=== PATIENT | male | born 1955 | race Caucasian/White ===

== ENCOUNTER 2016-11-02 06:36 | Inpatient (IN) | payer BC ==
[2016-10-18 08:21] VITALS: BMI 27.0
--- NOTE | 2016-10-18 08:49 | PAT Medication Instructions ---
Service Date Oct 18, 2016. Current Home Medication List Aspirin (Aspirin), 81 MG PO Q2D Atorvastatin (Lipitor), 40 MG PO Q2D Cyclobenzaprine Hcl (Flexeril), 10 MG PO TID PRN for Muscle Spasms Multivitamin (Multivitamin), 1 TAB PO QAM Potassium Chloride (Micro-K Ext Rel), 10 MEQ PO BID Sildenafil Citrate (Viagra), 50 MG PO PRN Triamterene/Hctz (Dyazide 37.5MG/25MG), 1 TAB PO Q2D Medication Instructions For Your Scheduled Surgery - Hold the following medications the morning of surgery: Potassium Chloride (Micro-K Ext Rel), 10 MEQ PO BID Triamterene/Hctz (Dyazide 37.5MG/25MG), 1 TAB PO Q2D Multivitamin (Multivitamin), 1 TAB PO QAM Sildenafil Citrate (Viagra), 50 MG PO PRN Cyclobenzaprine Hcl (Flexeril), 10 MG PO TID PRN for Muscle Spasms - Take the following medications the morning of surgery with a sip of water OTHERWISE NOTHING TO EAT OR DRINK AFTER MIDNIGHT: Aspirin (Aspirin), 81 MG PO Q2D Atorvastatin (Lipitor), 40 MG PO Q2D - Take the following medications as scheduled the night before surgery: Potassium Chloride (Micro-K Ext Rel), 10 MEQ PO BID Cyclobenzaprine Hcl (Flexeril), 10 MG PO TID PRN for Muscle Spasms If you have any questions please call us at [phone] or [phone] or [phone]
--- NOTE | 2016-10-18 09:24 | DIAGNOSTIC IMAGING REPORT ---
CHEST PREADMISSION(PA/LAT) CLINICAL HISTORY: Preoperative chest COMPARISON STUDY: No previous studies for comparison. FINDINGS: The cardiac and mediastinal contours are normal. There is no evidence of focal pulmonary consolidation. There is no evidence of failure. No pleural effusions are visualized.[ IMPRESSION: No active disease in the chest. Electronically signed by: Francisco Javier Borja M.D. 10/18/2016 9:23 AM Dictated Date/Time: 10/18/2016 9:22 AM
[2016-10-18 10:53] LABS: BASO % 0.6 %; BASO ABS # 0.03 K/uL (0-0.2); COMPLETE YES; EOS % 2.9 %; HEMATOCRIT 46.1 % (42-52); IG% 0.2 %; LYMPH % 22.1 %; LYMPH ABS # 1.08 K/uL (1.2-3.4); MEAN CELL VOLUME 95.8 fL (80-100); MEAN CORPUSCULAR HEMOGLOBIN 32.2 pg (25-34); MEAN CORPUSCULAR HGB CONC 33.6 g/dl (32-36); MONO % 11.1 %; NEUT % 63.1 %; PLATELET COUNT 222 K/uL (130-400); RED BLOOD COUNT 4.81 M/uL (4.7-6.1); WHITE BLOOD COUNT 4.88 K/uL (4.8-10.8)
[2016-10-18 11:00] LABS: BUN/CREATININE RATIO 16.2 (10-20); CREATININE 1.2 mg/dl (0.60-1.40); POTASSIUM 3.9 mmol/L (3.5-5.1)
[2016-10-18 11:02] LABS: CALCIUM 9.4 mg/dl (8.5-10.1)
[2016-10-18 11:03] LABS: PROTHROMBIN TIME (PATIENT) 10.5 SECONDS (9.0-12.0)
--- NOTE | 2016-10-28 21:35 | HISTORY & PHYSICAL EXAMINATION ---
DATE OF ADMISSION: 11/02/2016 CHIEF COMPLAINT: Right knee pain, discomfort, and swelling. HISTORY OF PRESENT ILLNESS: A 61-year-old gentleman, who presents for surgical treatment of his right knee. He has got a fairly long history of right knee pain and discomfort that I have been following for the past 2 years. We have even aspirated and injected his knee which provided some temporary relief. Pain has become more disabling. The shots help him for a very limited period of time. He has got chronic swelling, stiffness. The more he walks, the more it hurts. He would like to have his knee replaced. PAST MEDICAL HISTORY: 1. Hypertension. 2. Elevated cholesterol. 3. Arthritis. PAST SURGICAL HISTORY: Include: 1. Colonoscopy. ALLERGIES: None. CURRENT MEDICINES: 1. Triamterene/hydrochlorothiazide 37.5/25 once a day. 2. Potassium chloride 20 mEq a day. 3. Cyclobenzaprine 10 mg. 4. Aspirin 81 mg. 5. Atorvastatin 40 mg. 6. Viagra 50 mg p.r.n. SOCIAL HISTORY: A 61-year-old male. Does not smoke. He is from [employer]. He is . One drink per day. FAMILY HISTORY: Significant for heart disease. REVIEW OF SYSTEMS: Negative for diabetes, neurologic problems, vascular problems, bleeding disorders. Denies any chest pain, no shortness of breath. No history of DVT or PE. PHYSICAL EXAMINATION: GENERAL: Reveals a healthy pleasant, middle-aged male. He looks to be in pretty good health. HEENT: Benign. NECK: Supple. No lymphadenopathy. LUNGS: Clear to auscultation. HEART: Has a regular rate and rhythm. ABDOMEN: Soft, nontender, nondistended. EXTREMITIES: Grossly neurovascularly intact except as follows. Examination of the right knee reveals the patient walks independently. He has a fairly neutral alignment to his knee. He has got moderate-size knee effusion. Range of motion 0-120. No instability. No particular pain with hip motion. X-RAYS: X-rays of the right knee reviewed. It shows advanced right knee medial compartment DJD. He has got some mild tibial femoral subluxation. He has got some patellofemoral disease as well. He has got osteophytes, medial and posteromedially. ASSESSMENT: A 61-year-old male with advanced right knee degenerative joint disease. He has failed conservative treatment and would like to have his right knee replaced. PLAN: We will take him to the operating room and do a right total knee replacement. The risks and benefits of this procedure were explained to the patient included, but not limited to DVT, PE, , infection, neurological injury, vascular injury, bleeding problem, pain, limited range of motion, stiffness, failure to relieve his symptoms, incomplete relief of symptoms, need for further surgery in the future, fracture, leg length inequality, nerve palsy, persistent pain, etc. The patient understands and desires to proceed. Informed consent was obtained. We did talk to him about holding his NSAIDs 10 days preop. He is planning to be discharged to home. He does not have the [facility] available. He will follow up with me 2 weeks postop.
[~2016-11-02] VITALS: Ht 177.8 cm; Wt 87.5 kg
[2016-11-02] VITALS (9 sets, daily range): BP systolic 111–157; BP diastolic 72–103; PULSE 51–76; TEMP 36.3–37.1; O2SAT 98–100; Ht 177.8 cm; Wt 87.5 kg
[~2016-11-02 06:36] MED LIST: ACETAMINOPHEN 500 MG TAB PO SCH; ASPI81CH2 PO; ATOR-24 PO; BUPIVACAINE LIPOSOME 266 MG, BUPIVACAINE/EPINEPHRINE INJ 50 ML, SODIUM CHLORIDE 0.9% PF... INFIL SCH; CEFAZOLIN 2000 MG/60 ML D5W 60 ML IV SCH; CYCL10TA6 PO; FAMOTIDINE 20 MG TAB PO SCH; GABAPENTIN 300 MG CAP PO SCH; LACTATED RINGER'S 1000ML 1,000 ML IV SCH; LACTATED RINGER'S 1000ML 500 ML IV ONE; METOCLOPRAMIDE HCL 10 MG TAB PO SCH; MULT-506 PO; POTA10CA28 PO; SCOPOLAMINE 1.5 MG TDSY TD SCH; TRANEXAMIC ACID INJ 1,000 MG in SODIUM CHLORIDE 0.9% 100ML 100 ML IV SCH; TRIA37.5 PO; VGR50 PO
[2016-11-02] MEDS ORDERED: BUPIVACAINE 0.5 % 5 MG/1 ML PF 10ML VIAL ONE (07:01)
[2016-11-02] MEDS ORDERED: BUPIVACAINE 0.25% 30 ML VIAL ONE (07:02)
[2016-11-02] MEDS ORDERED: EpHEDrine SULFATE INJ 50 MG/ML AMP IV PRN (07:30)
[2016-11-02] MEDS ORDERED: FENTANYL CITRATE INJ 50 MCG/1 ML 2 ML VIAL IV PRN (07:30)
[2016-11-02] MEDS ORDERED: ONDANSETRON INJ 2 MG/ML 2 ML VIAL IV PRN ×2 (07:30→10:45)
[2016-11-02] MEDS ORDERED: ATROPINE SULFATE 0.1 MG/ML 5ML SYR IV PRN (07:30)
[2016-11-02] MEDS ORDERED: FENTANYL CITRATE INJ 50 MCG/1 ML 2 ML VIAL ONE (07:50)
[2016-11-02] MEDS ORDERED: PROPOFOL IV EMULSION 10 MG/ML 20 ML VIAL IV ONE (07:50)
[2016-11-02] MEDS ORDERED: MIDAZOLAM HCL 1 MG/ML 2ML VIAL ONE ×2 (07:51→08:18)
[2016-11-02] MEDS ORDERED: LIDOCAINE HCL 2% 2 ML VIAL (20MG/ML) ONE (07:51)
--- NOTE | 2016-11-02 08:33 | History & Physical Bridge Note ---
H&P Re-Evaluation Bridge Note: I have examined the patient, reviewed the History & Physical and in the interval since the performance of the History & Physical I have noted the following changes of clinical significance: No changes noted
[2016-11-02] MEDS ORDERED: BUPIVACAINE/EPINEPHRINE 0.25% 1:200,000 30 ML VIAL ONE (08:36)
[2016-11-02] MEDS ORDERED: SODIUM CHLORIDE 0.9% PF 50 ML VIAL ONE (08:36)
[2016-11-02] MEDS ORDERED: BACITRACIN 50000 UNIT VIAL ONE (08:36)
[2016-11-02] MEDS ORDERED: BUPIVACAINE LIPOSOME 1/3% 266 MG/20 ML VIAL INFIL ONE (08:36)
--- NOTE | 2016-11-02 10:31 | [facility] Post Operative Brief Note ---
Immediate Operative Summary Operative Date Nov 02, 2016. Pre-Operative Diagnosis Right knee degenerative joint disease Post-Operative Diagnosis Right knee degenerative joint disease Procedure(s) Performed Right Total Knee Arthroplasty Surgeon Dr. Ramy Holland Warehouse Inventory Clerk Surgeon(s) Kermit Olivas PA-C Estimated Blood Loss 50 ml Findings Right Knee DJD Fluids (cc crystalloids) 1300 cc Specimens Specimen A. Right knee bone and tissue Drains None Anesthesia Spinal Complication(s) None Disposition Recovery Room / PACU
[2016-11-02] MEDS ORDERED: SILVER SULFADIAZINE 1% CR 50 GM JAR EXT PRN (10:45)
[2016-11-02] MEDS ORDERED: SILDENAFIL CITRATE 50 MG PO SCH (10:45)
[2016-11-02] MEDS ORDERED: ZOLPIDEM TARTRATE 5 MG TAB PO PRN (10:45)
[2016-11-02] MEDS ORDERED: MAGNESIUM HYDROXIDE SUSP 30 ML UDC PO PRN (10:45)
[2016-11-02] MEDS ORDERED: DiphenhydrAMINE HCL 50 MG/ML VIAL IV PRN (10:45)
[2016-11-02] MEDS ORDERED: METOCLOPRAMIDE HCL INJ 5 MG/ML 2 ML VIAL IV PRN (10:45)
[2016-11-02] MEDS ORDERED: TAMSULOSIN HCL 0.4 MG CAP PO PRN (10:45)
[2016-11-02] MEDS ORDERED: CYCLOBENZAPRINE HCL 10 MG TAB PO PRN (10:45)
[2016-11-02] MEDS ORDERED: ALUMINUM/MAGNESIUM/SIMETH (MAALOX MAX) 30 ML UDC PO PRN (10:45)
[2016-11-02] MEDS ORDERED: MoRPHine SULFATE 2 MG/ML CARP IV PRN (10:45)
[2016-11-02] MEDS ORDERED: BISACODYL 10 MG SUPP PR PRN (10:45)
--- NOTE | 2016-11-02 11:10 | DIAGNOSTIC IMAGING REPORT ---
TWO VIEWS RIGHT KNEE CLINICAL HISTORY: Postoperative examination. FINDINGS: AP and crosstable lateral portable views of the right knee are obtained. A right knee arthroplasty is in near anatomic alignment. There has been undersurface remodeling of the patella. No acute fracture is seen. There are expected postoperative changes around the knee including skin clips, soft tissue edema, and subcutaneous gas. IMPRESSION: Expected postoperative changes status post right knee arthroplasty. No acute fracture is seen. Electronically signed by: Ernst Nickerson M.D. 11/02/2016 11:09 AM Dictated Date/Time: 11/02/2016 11:07 AM
--- NOTE | 2016-11-02 11:13 | Anesthesiology Progress Note ---
Anesthesia Post Op Note Date & Time Nov 02, 2016 at 11:12 Vital Signs Pain Intensity: 0 Vital Signs Past 12 Hours Date Time Temp Pulse Resp B/P (MAP) Pulse Ox O2 Delivery O2 Flow Rate FiO2 11/02/16 11:05 52 16 112/72 98 Nasal Cannula 2 11/02/16 10:55 61 16 107/69 97 Nasal Cannula 2 11/02/16 10:45 65 16 110/66 97 Nasal Cannula 2 11/02/16 10:35 61 16 109/67 96 Nasal Cannula 2 11/02/16 10:29 36.2 71 16 114/63 96 Nasal Cannula 2 11/02/16 07:09 36.8 69 18 151/103 98 Room Air Notes Mental Status: alert / awake / arousable, participated in evaluation Pt Amnestic to Procedure: Yes Nausea / Vomiting: adequately controlled Pain: adequately controlled Airway Patency, RR, SpO2: stable & adequate BP & HR: stable & adequate Hydration State: stable & adequate Neuraxial Anesthesia: was administered, sensory block is resolving Anesthetic Complications: no major complications apparent
--- NOTE | 2016-11-02 11:21 | OPERATIVE REPORT ---
DATE OF OPERATION: 11/02/2016 SURGEON: Ramy Holland MD DISC INSPECTOR: RODRÍGUEZ Chaidez PREOPERATIVE DIAGNOSIS: Right knee degenerative joint disease. POSTOPERATIVE DIAGNOSIS: Same. PROCEDURE PERFORMED: Right cemented posterior stabilized total knee arthroplasty. COMPLICATIONS: None. ESTIMATED BLOOD LOSS: 50 mL. FLUID REPLACEMENT: 1300 mL crystalloid fluid replacement. TOURNIQUET TIME: 53 minutes at 300 mmHg. ANESTHESIA: Spinal with adductor canal block. DRAINS: None. SPECIMENS: Right knee sent for pathology. OPERATIVE INDICATIONS: The patient is a 61-year-old gentleman who has had a several year history of increasing right knee pain and discomfort. He has been through extensive conservative treatment. He continued to have a large knee joint effusions and pain and persistent progressive decreased ability to maintain an active lifestyle. He failed conservative treatment. X-rays revealed advanced medial compartment DJD. The patient elected to proceed with operative treatment. OPERATIVE FINDINGS: Operative findings revealed a large tense knee joint effusion. It was serous and benign in appearance, but still a large volume. He had extensive grade 4 changes of the medial femoral condyle and medial tibial plateau. Lateral compartment was pretty well preserved. He did have a advanced grade 4 changes of the patella as well as the medial trochlea. OPERATIVE IMPLANTS: Operative implants consisted of: 1. Biomet Vanguard size 67.5 right posterior stabilized femoral component. 2. Biomet size 75 tibial tray. 3. A 12-mm stabilized polyethylene insert. 4. A 34 x 8.5 all poly patella. OPERATIVE PROCEDURE: The patient was taken to the operating room, identified and placed on the operating table in the supine position. All contact areas were appropriately padded. IV antibiotics provided by anesthesia team. A spinal anesthetic and adductor canal block had been provided in the holding area. Burris catheter was placed in sterile fashion. Right thigh tourniquet was then placed. The right lower extremity was then prepped and draped in the usual sterile fashion. The right leg was elevated and exsanguinated with Esmarch and tourniquet was placed at 300 mmHg. An anterior approach to the right knee was then performed through a longitudinal incision centered over the patella. Sharp dissection was carried out through the subcutaneous tissues down to the level of the extensor mechanism. A medial parapatellar arthrotomy incision was made. Some subperiosteal dissection was carried out medially. The fat pad was resected from beneath the patellar tendon. The lateral patellofemoral ligament was released. The patella was everted and knee was flexed. The osteophytes were taken off the distal femur. The ACL and PCL were then released from the distal femur and the tibia subluxated anteriorly. The external tibial alignment jig was then placed in the anterior face of the tibia and adjusted 14 mm medially. Proximal tibial cut was made to remove about 1-2 mm of bone from the most deficient aspect of the medial tibial plateau. Some osteophytes were taken off medial and posteromedially. Tibia was sized to a size 75. Attention was then drawn to the femur. The distal femur was entered with a sharp drill bit. Intramedullary canal was suctioned. A right 6-degree valgus cutting guide was placed. Distal femoral cutting block was pinned in place. Distal femoral cut was made to take an additional 3 mm of bone off the distal femur. The femur was then sized to a size 67.5. We did downsize this slightly. The AP cutting block was pinned parallel to the epicondylar axis, which was 3 degrees of external rotation. The anterior cut, anterior chamfer cut, posterior cut, and posterior chamfer cuts were made. Box cutting guide was placed and adjusted slightly lateral and the box cut was made. The remnants of the medial and lateral menisci were excised. The osteophytes were taken off the posterior aspect of the femur. A trial femoral component was placed. The tibial tray was pinned in maximum external rotation and drill and stem punch were used to create defect in proximal tibia for the tibial tray. The knee was then trialed and the 12-mm insert fit most appropriately. Attention was then drawn to the patella. The patella was cleaned of all soft tissues. Patella thickness measured about 20 mm and it was cut down to 12. It was sized to a size 34 patella. Lug holes were drilled for a 34 patella. Lateral osteophyte was removed. Patella button was placed. Knee was taken through range of motion and patella tracked nicely with no thumbs test. Attention was then drawn toward placement of the permanent components. All trial components were removed. A bone plug was placed in the distal femur to limit blood loss. A double batch of Palacos G cement was mixed. A right size 67.5 posterior stabilized femoral component, size 75 tibial tray, 12-mm posterior stabilized polyethylene insert, and a 34 x 8.5 all poly patella were then cemented in place. Knee was brought out into full extension until cement hardened. A final cement check was then performed. The pericapsular tissues were injected with a total of 100 mL of a combination of 20 mL of Exparel, 30 mL normal saline, and 50 mL of 0.25% Marcaine with epinephrine. The patient did receive 1 gram of tranexamic acid. The tourniquet was then let down for final tourniquet time of 53 minutes. Hemostasis was assured with use of electrocautery. The wound was once again irrigated. The extensor mechanism was then closed with a combination of #1 PDS suture and #1 Vicryl suture in a [id number] fashion. Extensor mechanism was checked and found to be intact. The subcutaneous tissues were then closed with 2-0 Dexon suture in a buried interrupted fashion. Skin was closed skin vinh. Leg was then cleaned and dried and a sterile dressing of Xeroform, 4 x 4, sterile cast padding and Saeid bandage were applied. The patient then transferred to the recovery room in stable condition. The patient tolerated the procedure well with no complications. All needle and sponge counts were correct at the end of the operation. I attest to the content of the Intraoperative Record and any orders documented therein. Any exception s are noted below.
[2016-11-02] MEDS: D5W AND 1/2NSS + 20MEQ KCL 1,000 ML IV SCH ×2 (12:35→20:42)
[2016-11-02] MEDS: FERROUS GLUCONATE 324 MG TAB PO SCH ×2 (12:44→17:59)
[2016-11-02] MEDS: ACETAMINOPHEN 500 MG TAB PO SCH ×2 (13:35→20:45)
[2016-11-02] MEDS: KETOROLAC TROMETHAMINE 30 MG/ML VIAL IV. SCH ×2 (13:35→20:42)
[2016-11-02] MEDS: OXYCODONE HCL IR 5 MG TAB (IMMEDIATE RELEASE) PO PRN (14:17)
[2016-11-02] MEDS: CEFAZOLIN IV 2,000 MG in DEXTROSE 5% 50ML 50 ML IV SCH (15:23)
[2016-11-02] MEDS ORDERED: TRANEXAMIC ACID INJ 1,000 MG in SODIUM CHLORIDE 0.9% 100ML 100 ML IV SCH (16:00)
[2016-11-02] MEDS: TAPENTADOL ER 50 MG TABCR PO SCH (20:41)
[2016-11-02] MEDS: ASPIRIN 325 MG ECTAB PO SCH (20:43)
[2016-11-02] MEDS: DOCUSATE SODIUM 100 MG CAP PO SCH (20:44)
[2016-11-02] MEDS ORDERED: SENNA 8.6 MG TAB PO SCH (21:00)
[2016-11-03] VITALS (7 sets, daily range): BP systolic 127–179; BP diastolic 71–100; PULSE 66–75; TEMP 36.8–37; O2SAT 96–98
[2016-11-03] MEDS: CEFAZOLIN IV 2,000 MG in DEXTROSE 5% 50ML 50 ML IV SCH (00:08)
[2016-11-03] MEDS: KETOROLAC TROMETHAMINE 30 MG/ML VIAL IV. SCH ×2 (01:48→07:29)
[2016-11-03] MEDS: D5W AND 1/2NSS + 20MEQ KCL 1,000 ML IV SCH (04:01)
[2016-11-03] MEDS: ACETAMINOPHEN 500 MG TAB PO SCH (05:08)
[2016-11-03 06:46] LABS: HEMATOCRIT 36.8 % (42-52); MEAN CELL VOLUME 95.3 fL (80-100); MEAN CORPUSCULAR HEMOGLOBIN 32.9 pg (25-34); MEAN CORPUSCULAR HGB CONC 34.5 g/dl (32-36); MEAN PLATELET VOLUME 9.4 fL (7.4-10.4); PLATELET COUNT 164 K/uL (130-400); RED BLOOD COUNT 3.86 M/uL (4.7-6.1); WHITE BLOOD COUNT 8.23 K/uL (4.8-10.8)
[2016-11-03 07:23] LABS: BUN/CREATININE RATIO 12.3 (10-20); CALCIUM 7.9 mg/dl (8.5-10.1); CREATININE 1.1 mg/dl (0.60-1.40); POTASSIUM 3.7 mmol/L (3.5-5.1)
[2016-11-03] MEDS: OXYCODONE HCL IR 5 MG TAB (IMMEDIATE RELEASE) PO PRN ×2 (07:29→12:09)
[2016-11-03] MEDS: FERROUS GLUCONATE 324 MG TAB PO SCH ×2 (08:35→12:30)
[2016-11-03] MEDS: ASPIRIN 325 MG ECTAB PO SCH (08:35)
[2016-11-03] MEDS: DOCUSATE SODIUM 100 MG CAP PO SCH (08:36)
[2016-11-03] MEDS: TAPENTADOL ER 50 MG TABCR PO SCH (08:40)
[2016-11-03] MEDS ORDERED: PANTOprazole SOD 40 MG TAB PO SCH (09:00)
[2016-11-03] MEDS ORDERED: ATORVASTATIN 20 MG TAB PO SCH (09:00)
[2016-11-03] MEDS ORDERED: TRIAMTERENE/HCTZ 37.5/25MG CAP PO SCH (09:00)
[2016-11-03] MEDS ORDERED: MULTIVITAMIN TAB PO SCH ×2 (09:00)
[2016-11-03] MEDS ORDERED: RXC5 PO (10:00)
[2016-11-03] MEDS ORDERED: ASPEC325 PO (10:00)
[2016-11-03] MEDS ORDERED: MORP-157 PO (10:00)
[2016-11-03] MEDS ORDERED: ACET-24 PO (10:00)
--- NOTE | 2016-11-03 10:01 | Discharge Instructions ---
Discharge Instructions Date of Service Nov 03, 2016. Admission Reason for Admission: Right Knee Degenerative Joint Disease Discharge Discharge Diagnosis / Problem: Right Knee Replacement Discharge Goals Goal(s): Decrease discomfort, Improve function, Increase independence, Improve disease control, Therapeutic intervention Activity Recommendations Activity Limitations: per Instructions/Follow-up section Weightbearing Status: Right weightbearing . Instructions / Follow-Up Instructions / Follow-Up ACTIVITY RECOMMENDATIONS: Physical Therapy: * You will go to physical therapy three times each week for four to six weeks after your surgery in order to regain your knee range of motion and to retrain your knee to work properly. * It is just as important to make sure you are getting your knee perfectly straight as it is to regain your knee bend. * Taking a pain pill an hour before therapy can help you have a more productive and comfortable therapy session. Home Exercise: * You were shown a series of exercises (heel props, heel slides, etc.) in the hospital. Do these exercises three to four times each day including the exercises you were shown in physical therapy. Walking: * Get up and walk several times each day. For the first four weeks, try not to stand or walk for more than one hour at a time. If you do stand or walk for more than one hour, you will not hurt anything, but your knee and leg will likely swell. * As you feel comfortable, you may change from the walker or crutches to a cane and then to independent walking. MEDICATIONS: New Medicine: * You will likely be taking one or more of these medications: 1. MS Contin - A long-acting pain medication. Take 1 tablet twice a day for the first ten days to decrease your baseline level of pain. 2. Oxycodone - A quick and shorter-acting pain medication. Take one to two tablets every four to six hours to lessen your pain. 3. Aspirin - Thins your blood to lessen the chance of forming a blood clot. * The most common side effects of pain medicine and iron are nausea and constipation. If nausea or constipation is too much of a problem or if you have any questions about your new medicines or doses, call [facility] at [phone]. We will try to help you manage these issues. VERY IMPORTANT TO READ AND REVIEW" Pain: * The immediate post-operative period after knee replacement surgery is often quite painful. * You are given a prescription for pain medicine. You should take it, as directed, when you need it, especially before physical therapy and before going to bed. Pain that interferes with sleep is very common and can last several months. * You will likely need pain medicine for the first four to six weeks. It will not stop all of the pain. The pain will lessen and as you feel better, you may change to milder pain medicine such as Tylenol. * The most common side effects of pain medicine are nausea and constipation, so don't take more than you need. SPECIAL CARE INSTRUCTIONS: TEDs/Elastic Stockings: * The white elastic stockings help limit swelling and prevent blood clots from forming in your legs. The more you wear them, the more they work. * Wear them for six weeks after knee replacement surgery and four weeks after partial knee replacement. Prevention of Infection: * Take antibiotics one hour before any dental cleaning, dental work, urological procedure, gastrointestinal procedure or any invasive surgery in order to prevent your new joint from getting infected. * You may get the antibiotics from the doctor performing the procedure or you may call our office at before and we will call in a prescription to the pharmacy of your choice. Things to Watch For: * Drainage from the incision site that occurs more than one week after your surgery. * Severely increased knee/leg pain or swelling. * Increased redness at the incision site. * Fever above 102 degrees Fahrenheit. * Unusual chest pain or shortness of breath. * Unusual pain or burning with urination. Call [facility] at with any of the above problems or if you have any questions about your medicines or recovery. FOLLOW UP VISIT: Make an appointment to see your doctor for approximately two weeks after surgery for a progress check and staple removal by calling the office at . Current Hospital Diet Patient's current hospital diet: Regular Diet Discharge Diet Recommended Diet: Regular Diet Procedures Procedures Performed: Right Total Knee Arthroplasty Pending Studies Studies pending at discharge: no Medical Emergencies . Who to Call and When: Medical Emergencies: If at any time you feel your situation is an emergency, please call [phone] immediately. . Non-Emergent Contact Non-Emergency issues call your: Surgeon . "Provider Documentation" section prepared by Ramy Holland. . VTE Core Measure Inpt VTE Proph given/why not?: Other Anticoagulation, T.E.D. Stockings, SCD's
--- NOTE | 2016-11-03 10:14 | PROGRESS NOTE ---
DATE: 11/03/2016 DATE: 11/03/2016. SUBJECTIVE: A 61-year-old gentleman postop day 1 from right knee replacement. He is doing well. A little bit of thigh discomfort and that is mostly it. No chest pain or shortness of breath. Not feeling dizzy or lightheaded. Really wants to go home today. OBJECTIVE: VITAL SIGNS: Temperature 37.0. Vital signs stable. PHYSICAL EXAMINATION: GENERAL: Healthy, pleasant, middle-aged male. He is sitting up in her bedside chair and looks comfortable. LUNGS: Clear to auscultation. HEART: Has a regular rate and rhythm. ABDOMEN: Soft, nontender, nondistended. EXTREMITY EXAMINATION: Grossly neurovascularly intact except as follows: Examination of the right leg reveals the dressing to be in place. It has been reenforced. There is no visible drainage. He can dorsiflex and plantarflex his foot appropriately. He can do a straight leg raise. LABORATORY DATA: Hemoglobin 12.7, hematocrit 36.8. Electrolytes are stable. ASSESSMENT: A 61-year-old gentleman postop day 1 from right knee replacement, doing well. Pain is controlled. He is neurologically intact. PLAN: 1. DVT prophylaxis including thigh-high TEDs, SCDs, and aspirin twice a day. 2. PT/OT. Weightbearing as tolerated. Right total knee protocol. 3. Pain control. Doing well with current pain regimen. 4. Disposition. Plan to discharge to home after therapy today if he is doing okay pain cheung.
--- NOTE | 2016-11-09 15:25 | Discharge Summary ---
Orthopedic Discharge Summary Admission Date/Reason Nov 02, 2016 at 10:36 Right Knee Degenerative Joint Disease. Discharge Date/Disposition Nov 03, 2016 Home Diagnosis Principal Diagnosis: right knee DJD Secondary Diagnoses/Problems: 1. Hypertension. 2. Elevated cholesterol. 3. Arthritis. Procedure(s) Performed RIGHT TKA Medication Reconciliation New Medications: Morphine Cont Rel (Ms Contin) 15 Mg Tab 15 MG PO Q12 for 10 Days, #20 TAB TAke for 10 days to lessen pain. Acetaminophen (Sb Non-Aspirin Extra Stre) 500 Mg Tab 1000 MG PO Q8H for 30 Days, #180 TAB Take 3 times per day to lessen pain. Aspirin (Aspirin) 325 Mg Ectab 325 MG PO BID for 45 Days, #90 TAke to prevent blood clots. Oxycodone HCl (Oxycodone HCl) 5 Mg Tab 5-10 MG PO Q6H PRN for Pain for 30 Days, #60 TAB Take as needed for Pain. Continued Medications: Atorvastatin (Lipitor) 40 Mg Tab 40 MG PO Q2D, TAB Cyclobenzaprine Hcl (Flexeril) 10 Mg Tab 10 MG PO TID PRN for Muscle Spasms, #21 TAB Multivitamin (Multivitamin) Tab 1 TAB PO QAM, TAB Sildenafil Citrate (Viagra) 50 Mg Tab 50 MG PO PRN, TAB Triamterene/Hctz (Dyazide 37.5MG/25MG) Cap 1 TAB PO Q2D, CAP Discontinued Medications: Aspirin (Aspirin) 81 Mg Chw 81 MG PO Q2D Admission Physical Exam As per Admitting History & Physical. Hospital Course Brandon was admitted on 6// and underwent TKA. He tolerated the procedure well , no complications. He was transferred to the pacu post op and later to the orthopedic floor for further care. He was given ancef for antibiotic prophylaxis. Teds, scd's, aspirin for dvt prophylaxis. Hemoglobin, hematocrit, and vital signs were monitored during his hospital stay and remained stable. He did not require any blood transfusions. By POD #1 he was tolerating a general diet, pain was controlled with oral pain medicines, he was participating in PT, and had no s/s of dvt. On POD#1 he was discharged home. He was given printed discharge instructions, including prescriptions as above. Continue PT, richy stockings, WBAT, Follow up in 10-12 days or sooner if there are problems or concerns. Discharge Instructions Please refer to the electronic Patient Visit Report (Discharge Instructions) for additional information.
== END 2016-11-03 13:59 | disposition home or self-care (01) | DRG 470 ==
LOC: C.ACU 06:36 → C.3E 10:36 → ENRESERV 11:13
PROVIDERS: ADMIT Orthopaedic Surgery Sports Medicine; ATTEND Orthopaedic Surgery Sports Medicine
PROC: 0SRC0J9 Replacement of Right Knee Joint with Synthetic Substitute, Cemented, Open Approach (ICD-10-PCS; principal; 2016-11-02 09:00)
DX: M17.11 Unilateral primary osteoarthritis, right knee (principal); I10 Essential (primary) hypertension; E78.00 Pure hypercholesterolemia, unspecified; Z79.899 Other long term (current) drug therapy; Z79.82 Long term (current) use of aspirin

== ENCOUNTER 2023-04-01 10:43 | Observation (INO) ==
--- NOTE | 2023-03-15 09:57 | PAT Medication Instructions ---
Medication Instructions Date of Service March 15, 2023 Home Medications atorvastatin 40 mg tablet 40 mg PO QAM cyclobenzaprine 10 mg tablet 10 mg PO TID PRN gabapentin 100 mg capsule 100 mg PO UD PRN hydrochlorothiazide 25 mg tablet 25 mg PO QAM lisinopril 20 mg tablet 20 mg PO BID meloxicam 15 mg tablet 15 mg PO QAM [id number] tablet (Multivitamin 50 Plus tablet) 1 tab PO QAM omeprazole 10 mg capsule,delayed release 10 mg PO DAILY PRN Continue as directed omeprazole 10 mg capsule,delayed release 10 mg PO DAILY PRN(if needed) gabapentin 100 mg capsule 100 mg PO UD PRN(if needed) ASK your surgeon for instructions meloxicam 15 mg tablet 15 mg PO QAM DO NOT take the morning of surgery hydrochlorothiazide 25 mg tablet 25 mg PO QAM lisinopril 20 mg tablet 20 mg PO BID [id number]-kwttopff-sypjnx tablet (Multivitamin 50 Plus tablet) 1 tab PO QAM Take morning of surgery With a small sip of water, OTHERWISE NOTHING TO EAT OR DRINK AFTER MIDNIGHT: atorvastatin 40 mg tablet 40 mg PO QAM cyclobenzaprine 10 mg tablet 10 mg PO TID PRN(if needed) Take evening before surgery cyclobenzaprine 10 mg tablet 10 mg PO TID PRN(if needed) lisinopril 20 mg tablet 20 mg PO BID Other Notes If you have any questions please call us at [phone] or [phone] or [phone] or [phone]
--- NOTE | 2023-03-24 14:12 | Anesthesiology Consultation ---
Date of Service March 24, 2023 Assessment & Plan (1) Encounter for pre-operative examination: - Infectious disease screening: Per assessment on 03/24/23: No known infectious disease contacts or current infectious disease symptoms. Patient was Covid posi tive 01/06/23 (home test)- mild headache, post nasal drip/sinus congestion/cough > resolved. Patient can proceed as scheduled without additional preop Covid testing or additional Covid contact precautions per protocol. - Outpatient joint assessment: Pt currently scheduled for inpatient pathway. If surgeon requests review for outpatient joint pathway, patient is an acceptable candidate for outpatient joint program from anesthesia standpoint pending surgeon's office assessment that patient is motivated, has good support and completes [facility] preop requirements. 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 This genetic variant is associated with hypertrophic cardiomyopathy, dilated cardiomyopathy, andrestrictivecardiomyopathy. He has had echocardiogram studies in 2011, 2018 and again in 2020 without pathologic findings... IVCD pattern noted today, likely due to slight change in lead position of V1 and V2. Stable findings.. Monoallelic mutation of TNNI3 gene.. Echocardiogram in 2020 reveals reassuring findings, no phenotypic expression disease at present." - Cardiology note (02/24/23): "Your echocardiogram looks great. Unchanged compared to the previous dating back to 2020. I think we should consider ongoing surveillance about every 2 years with repeat echocardiogram." - S/P Right TKA (11/02/16): SAB at L3-4 (x1 attempt) + PNB at [facility] - Check potassium level DOS (borderline low at 3.1 on preop labs 03/24/23) Chart Review Chart Review: Acceptable Risk for Surgery and Patient seen in Pre Admission Testing Teaching & Discussion Pre-Anesthesia Teaching/Discussion Notes: Instructed NPO after midnight before surgery,except medications with 15 cc of water. Medication instructions provided according to the PAT guidelines. History Surgery Operation Date: 04/01/23 12:30 Proposed Procedures p Left Total Knee Arthroplasty - Ramy Holland MD Height/Weight Height: 5 ft 10 in Weight: 90 kg Allergies Allergy/AdvReac Type Severity Reaction Status Date / Time No Known Allergies Allergy Verified 03/15/23 08:09 Medications Home Medications Medication Instructions Recorded Confirmed Last Taken atorvastatin 40 mg tablet 40 mg PO QAM 03/15/23 03/15/23 Unknown cyclobenzaprine 10 mg tablet 10 mg PO TID PRN Pain 03/15/23 03/15/23 Unknown gabapentin 100 mg capsule 100 mg PO UD PRN travel 03/15/23 03/15/23 Unknown hydrochlorothiazide 25 mg tablet 25 mg PO QAM 03/15/23 03/15/23 Unknown lisinopril 20 mg tablet 20 mg PO BID 03/15/23 03/15/23 Unknown meloxicam 15 mg tablet 15 mg PO QAM 03/15/23 03/15/23 Unknown [id number] 1 tab PO QAM 03/15/23 03/15/23 Unknown tablet (Multivitamin 50 Plus tablet) omeprazole 10 mg capsule,delayed 10 mg PO DAILY PRN Heartburn 03/15/23 03/15/23 Unknown release Past Medical History Medical History Monoallelic mutation of TNNI3 gene [employer] research program testing found [id number] 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 This genetic variant is associated with hypertrophic cardiomyopathy, dilated cardiomyopathy, andrestrictivecardiomyopathy. Follows with [facility]. Unremarkable Echos (most recently 02/2023). No phenotypic expression disease present per cardiology. History of COVID-19 01/06/23 (home test)- mild headache, post nasal drip/sinus congestion/cough > resolved Heartburn occasional Hypertension Hyperlipidemia Exercise / Class Metabolic Activity II 4-5 Yardwork/Stairs/Walk up hill Past Family History Family History Other No family history of adverse response to anesthesia Past Surgical History Surgical History History of colonoscopy Status post right knee replacement Right TKA (11/02/16): SAB at L3-4 (x1 attempt) + PNB at [facility] Past Anesthesia History No Hx of Anesthesia Complications and No Family Hx of Anesthesia Complications History of PONV No Hx of PONV and No Hx of Motion Sickness Social History Smoking Status: Never smoker Do You Dip or Chew Tobacco: No Hx Alcohol Use: Yes Alcohol type: beer alcohol intake frequency: 0-2 drinks per day (2 beers/day) Hx Substance Use: No substance use type: does not use Review of Systems Patient denies chest pain, shortness of breath, dyspnea on exertion, fever, chills, cough, wheezing, palpitations. Physical Exam Vital Signs VITALS BP 149/84 P 68 TEMP 98.3 SP02 97%RA RESP 16 PHYSICAL Full cervical extension range of motion. Full TMJ range of motion. TMD 3 finger breaths Mallampati Score 1 Dentition: intact, several crowns Lungs: clear throughout to auscultation Cardiac: regular rate and rhythm, no murmurs noted Spine: normal Carotid arteries: negative bruit Extremities: no LE edema Lab Results Anesthesia Preop Results Results Anesthesia Widget: WBC 6.69 K/ul (4.8-10.8) 03/24/23 Hgb 14.9 g/dl (14.0-18.0) 03/24/23 Hct 42.8 % (42.0-52.0) 03/24/23 Plt 222 K/uL (130-400) 03/24/23 Na 135 mmol/L (136-145) L 03/24/23 K 3.1 mmol/L (3.5-5.1) L 03/24/23 Cl 100 mmol/L (98-107) 03/24/23 CO2 29 mmol/L (21-32) 03/24/23 BUN 16 mg/dl (6-23) 03/24/23 Creat 1.12 mg/dl (0.6-1.4) 03/24/23 Glucose Level 100 mg/dl (70-99(Fasting)) H 03/24/23 PT 10.8 Seconds (9.0-12.0) 03/24/23 PTT 27.1 Seconds (21.0-31.0) 03/24/23 INR 1.0 (0.9-1.1) 03/24/23 Blood Type O Positive 03/24/23 Antibody Screen NEGATIVE 03/24/23 Testing Electrocardiogram Date: 04/16/22 Sinus rhythm with first-degree AV block at 62 bpm. LAD. Nonspecific IVCD. Chest X-Ray Date: 03/24/23 FINDINGS: No lines and tubes are seen. The aorta is tortuous. The remainder of the cardiomediastinal silhouette is unremarkable. The lungs are clear. No evidence of pleural effusion or pneumothorax. IMPRESSION: No acute chest disease. Echocardiogram Date: 02/24/23 LVEF 61%. LV wall motion is normal. Mild AV sclerosis. Grade 1 diastolic dysfunction. Borderline enlarged aortic root, 3.8 cm. No significant change compared to previous study 03/16/2021 per report.
[~2023-04-01 10:43] MED LIST changes: -ASPI81CH2 PO; -ATOR-24 PO; +BUPIVACAINE 0.5 % 5 MG/1 ML PF 10ML VIAL ONE; -BUPIVACAINE LIPOSOME 266 MG, BUPIVACAINE/EPINEPHRINE INJ 50 ML, SODIUM CHLORIDE 0.9% PF... INFIL SCH; +BUPIVACAINE LIPOSOME/PF 266 MG, BUPIVACAINE/EPINEPHRINE 50 ML, SODIUM CHLORIDE 0.9% PF ... INFIL SCH; -CEFAZOLIN 2000 MG/60 ML D5W 60 ML IV SCH; -CYCL10TA6 PO; +CeleBREX 200 MG CAP PO SCH; -GABAPENTIN 300 MG CAP PO SCH; -LACTATED RINGER'S 1000ML 1,000 ML IV SCH; -LACTATED RINGER'S 1000ML 500 ML IV ONE; +LR 500ML BOLUS, THEN 15ML/HR IV SCH; +LR 60ML/HR IV SCH; -METOCLOPRAMIDE HCL 10 MG TAB PO SCH; +METOCLOPRAMIDE HCL 10 MG TABLET PO SCH; -MULT-506 PO; -POTA10CA28 PO; +ROPIVACAINE 0.5% 5 MG/ML 30 ML VIAL ONE; -SCOPOLAMINE 1.5 MG TDSY TD SCH; +Scopolamine 1 MG TDSY TD SCH; +TRANEXAMIC ACID 1,000 MG **IV Intra-op IV SCH; -TRANEXAMIC ACID INJ 1,000 MG in SODIUM CHLORIDE 0.9% 100ML 100 ML IV SCH; -TRIA37.5 PO; -VGR50 PO; +ceFAZolin 2000MG 2,000 MG/15 ML SYR IV SCH; +dexAMETHasone**PF** 10 MG/ML VIAL IV SCH
--- NOTE | 2023-04-01 10:49 | History & Physical Bridge Note ---
Date of Service April 01, 2023 History & Physical Bridge Note I have examined the patient, reviewed the History & Physical and in the interval since the performance of the History & Physical I have noted the following changes of clinical significance: no changes noted
[2023-04-01] MEDS ORDERED: LIDOCAINE 2% 2 ML VIAL/AMP(20MG/ML) INFIL ONE (11:55)
[2023-04-01] MEDS ORDERED: fentaNYL citrate PF 100 MCG/2 ML VIAL ONE (11:55)
[2023-04-01] MEDS ORDERED: PROPOFOL IV EMULSION 10 MG/ML 20 ML VIAL IV ONE ×2 (11:55→15:08)
[2023-04-01] MEDS ORDERED: KETOROLAC 30 MG/ML VIAL ONE (11:55)
[2023-04-01] MEDS ORDERED: MIDAZOLAM HCL 1 MG/ML 2ML VIAL ONE ×2 (11:55)
[2023-04-01] MEDS ORDERED: ONDANSETRON INJ 2 MG/ML 2 ML VIAL IV PRN ×2 (13:11→17:00)
[2023-04-01] MEDS ORDERED: ePHEDrine sulfate 50 MG/ML AMP IV PRN (13:11)
[2023-04-01] MEDS ORDERED: ATROPINE SULFATE 0.1 MG/ML 10ML SYR IV PRN (13:11)
[2023-04-01] MEDS ORDERED: fentaNYL citrate PF 100 MCG/2 ML VIAL IV PRN (13:11)
[2023-04-01] MEDS ORDERED: BUPIVACAINE/EPINEPHRINE 0.25% 1:200,000 30 ML VIAL ONE (13:12)
[2023-04-01] MEDS ORDERED: BUPIVACAINE LIPOSOME 1.3% 266 MG/20 ML VIAL ONE (13:12)
[2023-04-01] MEDS ORDERED: SODIUM CHLORIDE 0.9% PF 50 ML VIAL ONE (13:12)
[2023-04-01] MEDS ORDERED: GLYCOPYRROLATE 0.2 MG/ML VIAL ONE (14:21)
[2023-04-01] MEDS ORDERED: PHENYLEPHRINE 100MCG/ML 10ML SYR IV ONE (14:59)
--- NOTE | 2023-04-01 15:30 | Operative Report ---
PG Post Operative Report Pre & Post Diagnosis Operation Date: 04/01/23 12:30 Pre-Op Diagnosis: Left Knee Degenerative Joint Disease Post-Op Diagnosis: Left Knee Degenerative Joint Disease I identified the patient and participated in the time-out.: Yes Procedure Operation Date: 04/01/23 12:30 Actual Procedures p Left Total Knee Arthroplasty(Left) - Ramy Holland MD Surgeon Ramy Holland MD Manufacturing Director Kermit Olivas PA-C Estimated Blood Loss 50 Findings Consistent with Post-Op Diagnosis Operative findings were advanced left knee tricompartment DJD. He had grade 4 [id number] disease in all 3 compartments. There are very large bony growth off the lateral aspect of his patella. Moderate-sized joint effusion. Specimens Left knee sent for pathology Anesthesia Type Spinal MAC Complications none Disposition Accompanied Patient To Recovery: No Indications Patient is a 67-year-old gentleman said a long history of knee problems over the years. He has been through extensive conservative treatment. He had his right knee replaced about 6 years ago and is done well from this.. He has been more recently bothered by persistent progressive left knee pain discomfort swelling. Failed conservative measures. He elected proceed with total knee arthroplasty. Description of Procedure Operative implants consist of: 1. Biomet Vanguard size 67.5 left posterior stabilized femoral component. 2. Biomet size 79 tibial tray. 3. 12 mm post stabilized polyethylene insert. 4. 34 x 8 and half all poly patella. The patient was taken the operating, identified, and placed on the operating table supine position. All contractors were appropriately padded. IV antibiotics tried by anesthesia team. A spinal anesthetic and abductor canal block had provided holding area. A left thigh turn was then placed. Left lower extremity was then prepped and draped in usual sterile fashion. The left leg was elevated exsanguinated with use of an Esmarch and the katherine rniquet was placed at 300 mmHg. An anterior approach the left knee was then performed through a longitudinal incision centered over the patella. Sharp dissection was carried through subcutaneous tissues down the extensor mechanism. A medial parapatellar arthrotomy incision was made. Some subperiosteal dissection was carried out medially. The fat pad was dissected from Neath patella tendon. Lateral patellofemoral ligament was released. Patella subluxated laterally and the knee was flexed. The osteophytes taken off distal femur. I did remove this large ossicle off the patella as well. The ACL and PCL were then released and the tibia subluxated anteriorly. The external tibial alignment jig was then placed on the interface the tibia and adjusted 14 mm medially. Proximal tibial cut was made remove about 2 mm of bone from the medial side. Tibia sized to a size 79. Attention drawn the femur. The distal femur examined with a sharp drill. Intramedullary canal was suction. A left 6 degree valgus cutting guide was placed. Distal femoral cutting block was pinned in place. Distal femoral cut was made to take an additional 3 mm bone off distal femur. The femur was then sized to a size 67.5. The AP cutting block was pinned parallel to the epicondylar axis which was 5 degrees of external rotation. The anterior cut, anterior chamfer, posterior cut, posterior chamfer cuts were made. The box cutting guide was placed in the just slight lateral and the box cut was made. The knee was flexed. The remnants of the medial and lateral menisci were excised. The osteophytes taken off the posterior aspect the femur. A trial femoral component was placed. The tibial tray was pinned in maximum external rotation and the drill and stem punch were used to create defect in proximal tibia for the tibial tray. I then trialed the knee and the 12 mm insert fit most appropriately. Attention drawn the patella. The patella was cleaned of all soft tissues. Patella thickness measured 22 mm in thickness was cut down to 13. Was sized to a size 37 patella. The locals were drilled for 37 patella. Lateral osteophyte was removed. Patella button was placed. Knee was taken through range of motion and the patella tracked nicely with no thumbs test. Attention drawn to place the permanent components. All trial components were removed. Bone plug was placed in the distal femur limit blood loss. Double batch Palacos G cement was mixed. Biomet Vanguard size 67.5 left posterior stabilized femoral component, size 79 tibial tray, 12 mm pro stabilized polyethylene insert, and a 34 x 8 and half all poly patella then cemented in place. The knee was brought out into full extension till cement hardened. Final cement check was then performed. The pericapsular tissues were injected with total 100 cc of combination of 20 cc of Exparel, 30 cc normal saline, 50 cc of quarter percent Marcaine with epinephrine. Patient did receive 1 g tranexamic acid. The tourniquet was then let down for final tourniquet time 58 minutes. Hemostasis assured use electrocautery. Extensor mechanism closed with combination 1 PDS suture #1 Vicryl suture in a [id number] fashion. Extensor mechanism checked found to be intact with subcutaneous tissues then closed with 2 Dexon suture in a buried interrupted fashion skin was closed skin vinh. Leg was then cleaned and dried and steri le dressing was Xeroform, 4 fours, sterile cast padding, Saeid bandage were applied. Patient then transferred to the recovery room in stable condition. The patient tolerated the procedure well and there were no complications. Kermit Olivas, my physician chemistry research assistant, was present for the entire procedure. His assistance was essential and required for appropriate patient positioning, prepping and draping, surgical exposure, performing the technical details of the operation, placement the implants, closure of the wound, and placement of the sterile bandage. I attest to the content of the Intraoperative Record and any orders documented therein. Any exceptions are noted below.
--- NOTE | 2023-04-01 15:48 | Anesthesiology Progress Note ---
Date of Service April 01, 2023 Anesthesia Post Procedure Vital Signs Vital Signs: Temp Pulse Pulse Resp BP Pulse Ox O2 Del Method 04/01/23 15:45 97.7 F 84 12 116/70 98 Room Air 04/01/23 15:35 91 H 22 118/58 L 97 Oxymask 04/01/23 15:26 97.3 F L 95 H 14 117/63 98 Oxymask 04/01/23 11:35 98.4 F 72 18 142/92 H 96 Room Air O2 Flow Rate 04/01/23 15:45 04/01/23 15:35 4 04/01/23 15:26 6 04/01/23 11:35 Transfer of Care Handoff Completed per policy Notes Mental Status: alert / awake / arousable and participated in evaluation Patient Amnestic to Procedure: Yes Nausea / Vomiting: adequately controlled Pain: adequately controlled Airway Patency, RR, SpO2: stable & adequate BP & HR: stable & adequate Hydration State: stable & adequate Anesthetic Complications: no major complications apparent and Pt Satisfied with anesthetic care
--- NOTE | 2023-04-01 16:53 | XRay Report ---
LEFT KNEE 2 VIEWS History: Left total knee arthroplasty. Degenerative arthritis. Postop. FINDINGS: The patient is status post a left total knee arthroplasty. The hardware is intact. No fract ure or dislocation. Skin vinh are in place. IMPRESSION: Left total knee arthroplasty. No evidence for hardware complication. ACT 112: Negative or not required by law. Electronically signed by: Servando Alonzo M.D. 04/01/2023 4:51 PM
[2023-04-01] MEDS ORDERED: ALUMINUM/MAGNESIUM SUSP 30 ML UDC PO PRN (17:00)
[2023-04-01] MEDS ORDERED: MAGNESIUM HYDROXIDE SUSP 30 ML UDC PO PRN (17:00)
[2023-04-01] MEDS ORDERED: METOCLOPRAMIDE HCL INJ 5 MG/ML 2 ML VIAL IV PRN (17:00)
[2023-04-01] MEDS ORDERED: NALOXONE HCL 0.4 MG/1 ML VIAL/CARP IV PRN (17:00)
[2023-04-01] MEDS ORDERED: GABAPENTIN 100 MG CAP PO PRN (17:00)
[2023-04-01] MEDS ORDERED: HYDROmorphone INJ 0.5 MG/0.5 ML SYR IV PRN (17:00)
[2023-04-01] MEDS ORDERED: bisacodyL 10 MG SUPP PR PRN (17:00)
[2023-04-01] MEDS ORDERED: CYCLOBENZAPRINE HCL 10 MG TAB PO PRN (17:00)
[2023-04-01] MEDS ORDERED: PANTOprazole 40 MG TAB PO PRN (17:07)
[2023-04-01] MEDS: SODIUM CHLORIDE 0.9% 1,000 ML IV SCH (17:22)
[2023-04-01] MEDS: Scopolamine CHECK PATCH PLACEMENT SCH ×2 (17:23→23:29)
[2023-04-01] MEDS: ASCORBIC ACID 500 MG TAB PO SCH (17:47)
[2023-04-01] MEDS: KETOROLAC TROMETHAMINE 15 MG/ML VIAL IV SCH ×2 (17:48→23:29)
[2023-04-01] MEDS ORDERED: COUGH DROP (SUGAR FREE) LOZ 24 LOZ/1 BOX BUCCAL ONE (19:40)
[2023-04-01] MEDS: oxyCODONE HCL IR 5 MG TAB (IMMEDIATE RELEASE) PO PRN (20:46)
[2023-04-01] MEDS: ceFAZolin 2000MG 2,000 MG/15 ML SYR IV SCH (20:46)
[2023-04-01] MEDS: DOCUSATE SODIUM 100 MG CAP PO SCH (20:47)
[2023-04-01] MEDS: ACETAMINOPHEN 500 MG TAB PO SCH (20:47)
[2023-04-01] MEDS: ASPIRIN 81 MG ECTAB PO SCH (20:47)
[2023-04-01] MEDS: SENNA 8.6 MG TAB PO SCH (20:48)
[2023-04-01] MEDS: lisinopril 20 MG TAB PO SCH (20:48)
[2023-04-01] MEDS ORDERED: SENNA 8.6 MG TAB PO SCH (21:00)
[2023-04-01] MEDS ORDERED: TRANEXAMIC ACID / 0.7% NACL 1,000 MG/100 ML BAG IV SCH (21:30)
[2023-04-02 04:13] VITALS: TEMP 97.9
[2023-04-02] MEDS: SODIUM CHLORIDE 0.9% 1,000 ML IV SCH (05:18)
[2023-04-02] MEDS: KETOROLAC TROMETHAMINE 15 MG/ML VIAL IV SCH (06:22)
[2023-04-02] MEDS: ceFAZolin 2000MG 2,000 MG/15 ML SYR IV SCH (06:22)
[2023-04-02] MEDS: oxyCODONE HCL IR 5 MG TAB (IMMEDIATE RELEASE) PO PRN (06:26)
--- NOTE | 2023-04-02 07:36 | Surgery Progress Note ---
Date of Service April 02, 2023 Assessment & Plan (1) Status post left knee replacement: Plan: 67-year-old gentleman postop day 1 from left knee replacement doing quite well. Pain is controlled. He is neurologically intact. Open to go home today. Plan: 1. DVT prophylaxis including thigh-high teds, SCDs, aspirin twice a day. 2. PT OT. Weight-bear as tolerated left total knee protocol. 3. Pain control doing okay with current pain regimen. 4. Disposition plan to discharge to home. He is going to outpatient therapy Admission and Anticipated Discharge Date Admission Date: April 01, 2023 Subjective 67-year-old gentleman postop day 1 from left knee replacement. He is doing well. Denies any significant pain. Had a pretty good night. No chest pain or shortness of breath. Not feeling dizzy or lightheaded. Hoping to go home today. Physical Exam Physical Exam: Physical examination of left leg reveals the leg to be well aligned. Dressing is clean dry and intact he can do a good straight leg raise. Can dorsiflex and plantarflex his foot appropriately. Respiratory: normal respiratory effort, lungs clear to auscultation Cardiovascular: RRR, no murmur, no edema Gastrointestinal (Abdomen): normal bowel sounds, soft, nontender, no hepatosplenomegaly Results & Data Vital Signs (Past 12 Hours) Vital Signs Temp Pulse Resp BP Pulse Ox O2 Del Method 04/02/23 03:40 36.6 C 67 20 117/62 95 Room Air 04/01/23 23:29 36.8 C 70 14 106/60 95 Room Air Laboratory Results Lab results are pending. PG Care Time/CCT Total # of Minutes Spent Total Time Spent with Patient: Total time spent is greater than 50% in coordination of care (as documented) at patient's floor/unit and/or counseling patient: Coding Level of Care Code None Diagnoses Status post left knee replacement Z96.652
[2023-04-02 07:55] LABS: Hematocrit (blood only) 35.1 % (42.0-52.0); Hemoglobin 12.6 g/dl (14.0-18.0); Mean Corpuscular Hemoglobin 33.9 pg (25.0-34.0); Mean Corpuscular Hgb Conc 35.9 g/dL (32.0-36.0); Mean Corpuscular Volume 94.4 fL (80.0-100.0); Platelet Count 183 K/uL (130-400); RDW Coefficient of Variation 12.3 % (11.5-14.5); RDW Standard Deviation 42.5 fL (36.4-46.3); Red Blood Count 3.72 M/uL (4.70-6.10); White Blood Count 16.62 K/ul (4.8-10.8)
[2023-04-02 08:00] LABS: Potassium 3.5 mmol/L (3.5-5.1)
[2023-04-02] MEDS ORDERED: dexAMETHasone 10 MG in SYRINGE 0 ML IV SCH (08:00)
[2023-04-02 08:06] LABS: BUN Creatinine Ratio 16.9 (10-20); Creatinine Clr Calc Pharmacy 54.4 ml/min; Est GFR (Non-African American) 53.5 ml/min
[2023-04-02 08:11] VITALS: BP 119/68; PULSE 76; RESP 16; O2SAT 96
[2023-04-02] MEDS: ACETAMINOPHEN 500 MG TAB PO SCH (08:16)
[2023-04-02] MEDS: ASCORBIC ACID 500 MG TAB PO SCH (08:16)
[2023-04-02] MEDS: DOCUSATE SODIUM 100 MG CAP PO SCH (08:17)
[2023-04-02] MEDS: lisinopril 20 MG TAB PO SCH (08:17)
[2023-04-02] MEDS: SENNA 8.6 MG TAB PO SCH (08:17)
[2023-04-02] MEDS: Scopolamine CHECK PATCH PLACEMENT SCH (08:17)
[2023-04-02] MEDS: ASPIRIN 81 MG ECTAB PO SCH (08:17)
[2023-04-02] MEDS ORDERED: hydroCHLOROthiazide 25 MG TAB PO SCH (09:00)
[2023-04-02] MEDS ORDERED: NON-FORMULARY MEDICATION (Multivitamin-Minerals-Lutein [Multivitamin 50 Plus] Tablet) PO SCH (09:00)
[2023-04-02] MEDS ORDERED: MULTIVITAMIN TAB PO SCH (09:00)
[2023-04-02] MEDS ORDERED: NON-FORMULARY MEDICATION (Amino Acids [Amino Acid] Capsule) PO SCH (09:00)
[2023-04-02] MEDS ORDERED: ATORVASTATIN 40 MG TAB PO SCH (09:00)
[2023-04-02] MEDS ORDERED: TAMSULOSIN HCL 0.4 MG CAP PO SCH (09:00)
--- NOTE | 2023-04-09 06:15 | Discharge Summary ---
Date of Service April 09, 2023 Discharge Data Procedures Performed Operation Date: 04/01/23 12:30 Actual Procedures p Left Total Knee Arthroplasty(Left) - Ramy Holland MD Hospital Course (1) Status post left knee replacement: This is a 67 year old patient admitted on 04/01/23 and underwent total knee arthroplasty. He tolerated the procedure well and there were no complications. Transferred to the PACU post op and later to the orthopedic floor for further care. He was given ancef for antibiotic prophylaxis. He was also given ERROL stockings, SCDs, and aspirin for DVT prophylaxis. Hemoglobin, hematocrit, and vital signs were monitored during his hospital stay and remained stable. Did not require any blood transfusions. There were no complications during his hospital stay. By post op day #1 the patient was tolerating a regular diet, pain was reasonably controlled with oral pain medicine, and he was participating in physical therapy. On post op day #1 the patient was discharged home and set up with home health care. He was given printed discharge instructions including prescriptions for extra strength tylenol, aspirin, ketorolac, zofran, oxycodone, senokot, and flomax. Continue physical therapy, weight bearing as tolerated. Continue ERROL stockings. Follow up approximately 2 weeks post op or sooner if there are problems or concerns. Coding Level of Care Code None Diagnoses Status post left knee replacement Z96.652
== END 2023-04-02 11:05 | disposition home or self-care (01) ==
LOC: ASU 10:43 → 3E 10:43
DX: E78.00 Pure hypercholesterolemia, unspecified; M17.12 Unilateral primary osteoarthritis, left knee; I10 Essential (primary) hypertension; Z79.82 Long term (current) use of aspirin; Z96.651 Presence of right artificial knee joint; Z79.899 Other long term (current) drug therapy